=== PATIENT | female | born 1975 | race Caucasian/White ===

== ENCOUNTER 2021-02-17 16:04 | Emergency (ER) | payer OTHER ==
[~2021-02-17 16:04] MED LIST: AMBIEN10 MG PO; CYCLOBENZAPRINE10 MG PO; PHENERGAN12.5 M1 PO; PREDNISONE20 MG PO
== END 2021-02-17 18:20 | disposition home or self-care (01) ==
LOC: FER 16:04
DX: S61.211A Laceration without foreign body of left index finger without damage to nail, initial encounter (principal); I10 Essential (primary) hypertension; Z23 Encounter for immunization; Z88.1 Allergy status to other antibiotic agents; Z88.6 Allergy status to analgesic agent; W26.0XXA Contact with knife, initial encounter; Y93.G3 Activity, cooking and baking; Y92.009 Unspecified place in unspecified non-institutional (private) residence as the place of occurrence of the external cause
CPT/HCPCS: 90471; 90715